=== PATIENT | male | born 1975 | race Caucasian/White ===

== ENCOUNTER 2024-03-28 15:39 | Emergency (ER) | payer OTHER, SELFPAY ==
[2024-03-28 15:40] VITALS: BP 133/84
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
--- NOTE | 2024-03-28 17:15 | EDRN ---
patient awake, crisis at bedside. crisis speaking with family including brother and father who plan to petition for 302.
[2024-03-28 19:02] VITALS: BP 148/86
[2024-03-28] MEDS: ATIVAN 1 MG PO (19:06)
[2024-03-28] MEDS: SUBUTEX 8 MG SL (22:42)
[2024-03-28] MEDS: KLONOPIN 1 MG PO (22:42)
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
[2024-03-29 02:41] LABS: % Basophils 0.9 % (0-2); % Eosinophils 1.8 % (0-6); % Immature Granulocytes 0.2 % (0-0.5); % Lymphocytes 27.1 % (20.5-51.1); % Monocytes 5.5 % (1.7-9.3); % Neutrophils 64.5 % (42.2-75.2); Absolute Eosinophils 0.1 10^3/uL (0-0.7); Absolute Lymphocytes 1.2 10^3/uL (1.2-3.4); Absolute Monocytes 0.2 10^3/uL (0.1-0.6); Absolute Neutrophils 2.8 10^3/uL (1.4-6.5); Hematocrit 37.8 % (39.0-52.0); Hemoglobin 13.2 g/dL (13.0-18.0); Mean Corp Hgb Conc. 34.9 g/dL (33.0-37.0); Mean Corpuscular Hgb 29.7 pg (27.0-31.0); Mean Corpuscular Volume 85.1 fL (80.0-94.0); Mean Platelet Volume 10.5 fL (7.4-10.4); Nucleated Red Blood Cells % 0 % (-); Platelet Count 201 10^3/uL (130-400); Red Blood Cell Count 4.44 10^6/uL (4.70-6.10); Red Cell Dist. Width 11.7 % (11.5-14.5); White Blood Cell Count 4.4 10^3/uL (4.8-10.8)
[2024-03-29 03:03] LABS: ALT (SGPT) 15 U/L (0-50); AST (SGOT) 25 U/L (17-59); Albumin 4.7 g/dl (3.5-5.0); Alkaline Phosphatase 38 U/L (38-126); Blood Urea Nitrogen 15 mg/dl (9-20); Calcium 9.3 mg/dl (8.4-10.2); Carbon Dioxide 26 mmol/L (22-30); Chloride 103 mmol/L (98-107); Glucose 125 mg/dl (70-99); Potassium 3.8 mmol/L (3.5-5.1); Sodium 140 mmol/L (135-145); Total Bilirubin 0.7 mg/dl (0.2-1.3); Total Protein 7.3 g/dl (6.3-8.2); eGFR > 60.00
[2024-03-29] MEDS: NICODERM TRANSDERMAL 21 MG TRANSDERM (03:10)
[2024-03-29 03:15] LABS: Amphetamines Negative (Negative); Barbiturates Negative (Negative); Benzodiazepines Positive (Negative); Buprenorphine Positive (Negative)
[2024-03-29 03:16] LABS: Cocaine Negative (Negative); Marijuana Positive (Negative); Methadone Negative (Negative); Methamphetamines Negative (Negative); Opiates Negative (Negative); Phencyclidine Negative (Negative); Tricyclic Antidepressants Negative (Negative)
[2024-03-29 04:10] LABS: Fentanyl, Urine Negative (Negative)
[2024-03-29 07:21] VITALS: BP 131/76; BMI 25.9
--- NOTE | 2024-03-29 09:41 | EDRN ---
security notified this RN that the pt wanted to speak with this RN, this RN entered the pts room and the pt stated to this RN, 'I am starting to withdrawl i need ativan and my Suboxone', this RN notified the provider Dr. Gomez
--- NOTE | 2024-03-29 09:46 | EDRN ---
Dr. Gomez currently at the pts bedside speaking with the pt
[2024-03-29] MEDS: KLONOPIN 1 MG PO (09:50)
[2024-03-29] MEDS: SUBUTEX 8 MG SL (09:51)
--- NOTE | 2024-03-29 09:54 | EDRN ---
this RN administered Subutex and Klonopin, the pt was able to take medication with water, no s/s of distress, the pt ate all of his breakfast, will continue to monitor the pt closely
[2024-03-29 11:47] VITALS: BP 138/76
== END 2024-03-29 11:49 ==
LOC: EMR 15:39
PROVIDERS: Emergency Medicine; CONSULT PHYSICIAN Psychiatry & Neurology Psychiatry; EMERGENCY PHYSICIAN Student in an Organized Health Care Education/Training Program
DX: F25.0 Schizoaffective disorder, bipolar type (principal); F11.20 Opioid dependence, uncomplicated; I10 Essential (primary) hypertension; G89.29 Other chronic pain
CPT/HCPCS: 99285; 80053; 80306; 80307; 85025